=== PATIENT | male | born 1965 | race Caucasian/White ===

== ENCOUNTER 2017-08-20 21:10 | Emergency (ER) | payer OTHER | END 2017-08-20 23:31 | disposition home or self-care (01) | LOC: E/R 21:10 | DX: G20 Parkinson's disease (principal); R40.2142 Coma scale, eyes open, spontaneous, at arrival to emergency department; R40.2242 Coma scale, best verbal response, confused conversation, at arrival to emergency department; R40.2362 Coma scale, best motor response, obeys commands, at arrival to emergency department | CPT/HCPCS: 99284; Z7502 ==